=== PATIENT | male | born 1950 | race Caucasian/White ===

== ENCOUNTER 2024-10-24 08:40 | Day surgery (SDC) | payer BC ==
--- NOTE | 2024-10-14 11:07 | ELECTROCARDIOGRAPH REPORT ---
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 AMINATA Rivera Measurements Intervals [place] Rate: 61 P: 63 [place]: 156 QRS: 68 QRSD: 107 T: 34 QT: 415 QTc: 418 Interpretive Statements Sinus rhythm Electronically Signed On 10-14-2024 19:24:[address] AMINATA Rivera Please click the below link to view image of tracing.
[2024-10-14 11:15] LABS: MEAN PLATELET VOLUME 7.2 FL (7.4-10.4); PRE OP HEMATOCRIT 45.8 % (42.0-52.0); PRE OP HEMOGLOBIN 16.1 g/dL (14.0-17.9); PRE OP PLATELET COUNT 173 X10'3 (140-440); PRE OP WHITE BLOOD COUNT 4.8 10'3 (4.8-10.8); RED CELL DISTRIBUTION WIDTH 13.6 % (11.5-14.5)
[2024-10-14 11:27] LABS: CREATININE 1.02 MG/DL (0.60-1.10); PRE OP ALT 27 U/L (30-65); PRE OP ANION GAP 7 (8-16); PRE OP AST 20 U/L (10-37); PRE OP BILIRUB, TOTAL 2.1 MG/DL (0.0-1.0); PRE OP GLUCOSE 99 MG/DL (70-104); PRE OP POTASSIUM 4.4 MMOL/L (3.4-5.1); PRE OP SODIUM 140 MMOL/L (135-145); TOTAL CARBON DIOXIDE 29.2 MMOL/L (24-32); eGFR 71 ML/MIN
[~2024-10-24] VITALS: Ht 175.3 cm; Wt 79.9 kg
[2024-10-24] VITALS (14 sets, daily range): BP systolic 123–150; BP diastolic 73–85; PULSE 59–86; RESP 11–16; TEMP 99.3; O2SAT 93–100
[~2024-10-24 08:40] MED LIST: ASCO-134 PO; ATOM18CA4; ATOR10TA70 PO; COQ10; GABA-1405; LACT1CAP26 PO; MULT-1074 PO; OMEG-5 PO; TAMS-55; [UNRECOGNIZED DRUG - CODE]; ceFAZolin 2gm/dext,iso 50mL 50 ML IV ONE
[2024-10-24] MEDS: ringers solution, lacted 1,000 ML IV SCH (09:33)
[2024-10-24] MEDS ORDERED: BUPIVAcaine 2.5mg/ml inj 50ml vial (contains preservative) ONE (09:54)
[2024-10-24] MEDS ORDERED: LIDOcaine 1% 30ml preserv. free vial ONE (09:54)
--- NOTE | 2024-10-24 10:02 | HISTORY AND PHYSICAL ---
History & Physical Providers to CC CC: DESIREE HER MD ~ History of Present Illness Reason for Admit\Complaint: Recurrent left inguinal hernia, right inguinal hernia, umbilical herni History of Present Illness Interval history and physical exam Patient here today for elective repair of bilateral inguinal hernias as well as an umbilical hernia He denies any change in his past medical history since he was seen in the office (please see previous history and physical exam for all pertinent details) He is scheduled for umbilical hernia repair possible mesh, and bilateral, robotic assisted laparoscopic inguinal hernia repairs with mesh (left side recurrent) Allergies: Coded Allergies: ibuprofen (Verified Allergy, Intermediate, RASH, 10/23/24) naproxen (Verified Allergy, Intermediate, RASH, 10/23/24) Uncoded Allergies: SODIUM PENTATHOL (Allergy, Intermediate, VOMITING, 10/23/24) Home Medications Home Medications Active Reported Culturelle (Lactobacillus Rhamnosus) 10 Billion Cell Capsule 1 Cap PO DAILY Ascorbic Acid 500 Mg Tablet 1,000 Mg PO DAILY Multi-Vitamin Daily (Multivitamin) 1 Each Tablet 1 Tab PO DAILY Fish Oil 1,000 Mg Softgel (Docosahexanoic Acid/Epa) 300 Mg-1,000 Mg Capsule 2 Cap PO DAILY WITH MEALS [Cristino] [Coq10] Gabapentin 600 Mg Tablet 2 Tab DAILY Flomax* (Tamsulosin HCl) 0.4 Mg Cap.sr.24h 2 Cap DAILY Atorvastatin Calcium 10 Mg Tablet 1 Tab PO DAILY Atomoxetine HCl 18 Mg Capsule 40 Mg DAILY Exam General: 74-year-old male in no acute distress Chest: Lungs clear to auscultation bilaterally Cardiovascular: Regular rate and rhythm without murmurs Abdomen: Soft and nondistended Problems: (1) Right inguinal hernia (2) Umbilical hernia (3) Recurrent left inguinal hernia Assessment & Plan: The risks, benefits, and alternatives to an umbilical hernia repair possible mesh, and robotic assisted, laparoscopic bilateral inguinal hernia repairs with mesh (left side recurrent) were discussed with the patient and his spouse. Risks include, but are not limited to, bleeding, infection, injury to intra-abdominal structures, hernia recurrence and chronic postoperative pain. Patient verbalized understanding and wishes to proceed with surgery. We will do so today as scheduled DESIREE HER MD Oct 24, 2024 10:02
[2024-10-24] MEDS ORDERED: acetaminophen 1,000mg/100ml IV 100 ML IV PRN (10:05)
[2024-10-24] MEDS ORDERED: ondansetron/PF 4mg/2ml inj IV PRN (10:05)
[2024-10-24] MEDS ORDERED: HYDROmorphone/PF 0.2 MG/ML SYRINGE IV PRN ×2 (10:05)
[2024-10-24] MEDS ORDERED: ringers solution, lacted 1,000 ML IV SCH (10:05)
[2024-10-24] MEDS ORDERED: labetalol 20mg/4ml (5mg/ml) syringe IV PRN (10:05)
[2024-10-24] MEDS ORDERED: morphine 4 MG/ML inj SYRINge IV PRN (10:05)
[2024-10-24] MEDS ORDERED: hydrALAZINE 20mg/ml inj. IV PRN (10:05)
[2024-10-24] MEDS ORDERED: midazolam 1 mg/ML 2ml injection ONE (10:06)
[2024-10-24] MEDS ORDERED: fentaNYL /PF 50mcg/ml 5ml ampule ONE (10:06)
[2024-10-24] MEDS ORDERED: LIDOcaine 2% (20mg/ml) 5ml vial ONE (10:20)
[2024-10-24] MEDS ORDERED: glycopyrrolate 0.2mg/ml inj ONE (10:20)
[2024-10-24] MEDS ORDERED: rocuronium 10mg/ml inj IV ONE (10:20)
[2024-10-24] MEDS ORDERED: propofol inj 20 ML IV ONE (10:20)
[2024-10-24] MEDS ORDERED: ondansetron/PF 4mg/2ml inj ONE (10:20)
[2024-10-24] MEDS ORDERED: dexamethasone sod phosphate 4mg/ml inj. ONE (10:20)
[2024-10-24] MEDS: BUPIVAcaine/PF 2.5 mg/ml (0.25%) 30ml vial IJ ONE (10:56)
[2024-10-24] MEDS: LIDOcaine 1% 30ml preserv. free vial IJ ONE (10:56)
[2024-10-24] MEDS ORDERED: HYDROcodone/acetaminophen 5mg/325mg tablet PO PRN (12:15)
--- NOTE | 2024-10-24 12:16 | OPERATIVE REPORT ---
Operative Report Providers to CC: ANSHUL HER MD ~ Date of Procedure: Oct 24, 2024 Pre-Operative Diagnosis: Recurrent left inguinal hernia, right inguinal hernia, umbilical hernia Post-Operative Diagnosis SAME as PRE-Op Procedure Performed 1 cm umbilical hernia repair Robotic assisted, laparoscopic recurrent left inguinal hernia repair with mesh Robotic assisted, laparoscopic right inguinal hernia repair with mesh Surgeon: Anshul Her MD FACS Mangle Feeder None Anesthesiologist: Celia Ramírez Type of Anesthesia: General Findings: Bilateral indirect inguinal hernias; scarring at the left preperitoneal space consistent with previous open repair 1 cm umbilical hernia Wound Class I Complications None Prosthetics\Implants used: Bilateral large Dextile mesh Estimated Blood Loss: Minimal Specimen Removed: None Description of Procedure: Patient was brought to the operating room and identified by the nursing staff and the attending physician. Patient was placed supine and general anesthesia was induced. The patient's abdomen was prepped and draped in the standard sterile fashion. Preoperative antibiotics were given. Supraumbilical, midline incision was made to accommodate a 12 mm Worrell port. Worrell technique was used to gain access into the abdomen and the port was anchored to the fascia with 0 Vicryl suture. During Worrell port placement, a 1 cm umbilical hernia defect was encountered. Its contents included both herniated omentum (reduced) and some preperitoneal fat (resected with hernia sac). Abdomen was insufflated without incident. Laparoscope was inserted and the pelvis examined. Patient was placed in Trendelenburg position. Secondary, 8.5 mm robotic trochars were then placed in the right lateral left lateral upper abdomen just above the umbilical line. These were placed under laparoscopic guidance. Local anesthetic was infiltrated prior to their insertion. The da Abel robotic arm was docked to the patient. Instruments were guided intra-abdominally under laparoscopic visualization. Peritoneal rent was created starting at the left anterior superior iliac spine and carried across the anterior abdominal wall to the contralateral anterior superior iliac spine. The peritoneal flap was created and carried down to the symphysis pubis. Dissection was carried out bilaterally. There was scarring in the preperitoneal space on the left consistent with a history of previous open repair. No mesh was encountered. On the right, there was a very large indirect inguinal hernia that was completely reduced. On the left, there was a moderate- sized indirect inguinal hernia that was also completely reduced. False hernia sacs were sutured to the conjoint tendon with absorbable V lock suture to obliterate the space bilaterally. Peritoneum was dissected away from the cord structures and out laterally to accommodate 2 separate pieces of large Dextile mesh. Bilateral critical views of the myopectineal orifice were obtained. Mesh and suture was passed into the abdomen. Bilateral mesh was placed covering potential obturator, femoral, direc t, and indirect hernia spaces. Mesh was anchored at Miles's ligament, rectus muscle in the midline, and out laterally just anterior to the anterior superior iliac spine. Mesh laid without wrinkles or folds. Peritoneal rent was then reapproximated with running, absorbable 2/0 V-lock suture. Rex were retrieved. Abdomen was allowed to desufflate after instruments removed and da Abel robotic arm undocked from the patient. Umbilical port was removed as were the secondary trochars. The fascia at the umbilical port site was closed with a combination of 0 Ethibond and 0 Vicryl sutures, thus repairing the 1 cm umbilical hernia defect. Skin was closed at all sites with 4-0 Monocryl sutures in a subcuticular fashion. Sterile dressings were applied. Patient was awakened and taken to the postanesthesia care unit in stable condition. Counts repoted as correct: Yes ANSHUL HER MD Oct 24, 2024 12:16
== END 2024-10-24 14:50 | disposition home or self-care (01) ==
LOC: PAS 08:40
PROVIDERS: ATTEND Surgery
DX: K40.91 Unilateral inguinal hernia, without obstruction or gangrene, recurrent (principal); K40.90 Unilateral inguinal hernia, without obstruction or gangrene, not specified as recurrent; K42.9 Umbilical hernia without obstruction or gangrene; E78.5 Hyperlipidemia, unspecified; G47.33 Obstructive sleep apnea (adult) (pediatric); F90.9 Attention-deficit hyperactivity disorder, unspecified type; M19.90 Unspecified osteoarthritis, unspecified site; Z79.1 Long term (current) use of non-steroidal anti-inflammatories (NSAID); Z79.899 Other long term (current) drug therapy; Z96.612 Presence of left artificial shoulder joint; Z88.8 Allergy status to other drugs, medicaments and biological substances
CPT/HCPCS: 36415; 80053; 82948; 85025; 93005; A4215; A4314; A4618; C1758; C1781; J1100; J2003; J2250; J2405; J2704; J2710; J3010; J3490; J7120

== ENCOUNTER 2024-10-26 15:40 | Emergency (ER) | payer BC ==
[~2024-10-26] VITALS: Ht 175.3 cm; Wt 88.7 kg
[~2024-10-26 15:40] MED LIST changes: -ceFAZolin 2gm/dext,iso 50mL 50 ML IV ONE
[2024-10-26 15:57] VITALS: BP 139/98; PULSE 78; RESP 16; O2SAT 98
--- NOTE | 2024-10-26 16:03 | Physician Documentation ---
History of Present Illness ~ Chief Complaint: Catheter Problem Stated Complaint: POST OP COMPLICATIONS Time Seen by MD: 16:20 Primary Medical Doctor: Heather MAYFIELD HPI Patient presents with his . Had hernia repair on with Dr. Alicia. There was a [place] catheter left in place and they were given instructions to remove the catheter today. They noted pink colored urine today and wanted it evaluated prior to removal. No pain. No fevers or chills. Overall, feels well. Medication Reconciliation Allergies: Coded Allergies: ibuprofen (Verified Allergy, Intermediate, RASH, 10/23/24) naproxen (Verified Allergy, Intermediate, RASH, 10/23/24) Uncoded Allergies: SODIUM PENTATHOL (Allergy, Intermediate, VOMITING, 10/23/24) Scheduled Ascorbic Acid (Ascorbic Acid), 1,000 MG PO DAILY, (Reported) Atomoxetine HCl (Atomoxetine HCl), 40 MG DAILY, (Reported) Atorvastatin Calcium (Atorvastatin Calcium), 1 TAB PO DAILY, (Reported) Docosahexanoic Acid/Epa (Fish Oil 1,000 Mg Softgel), 2 CAP PO DAILY, (Reported) Gabapentin (Gabapentin), 2 TAB DAILY, (Reported) Lactobacillus Rhamnosus (Culturelle), 1 CAP PO DAILY, (Reported) Multivitamin (Multi-Vitamin Daily), 1 TAB PO DAILY, (Reported) Tamsulosin Hcl* (Flomax*), 2 CAP DAILY, (Reported) Miscellaneous Medications [Coq10], (Reported) [Cristino], (Reported) Discontinued Medications [Multivitamin], (Reported) Discontinued Reason: Prescription changed [Probiotic], (Reported) Discontinued Reason: Prescription changed [Ultimate [place]], (Reported) Discontinued Reason: Prescription changed [Vit C], (Reported) Discontinued Reason: Prescription changed Past Medical History Past Medical History: No Pertinent History Past Surgical History: orthopedic surgeries, other Alcohol Use: Occasionally Drug Use: none Review of Systems ROS Review of systems negative except documented in HPI. Physical Exam Vital Signs: Temperature: 98.0, Source: Temporal, Heart Rate: 78, Respiratory Rate: 16, BP: 139/98, Pulse Oximetry: 98, Weight: 88.700 Oxygen Flow Rate: 0 Pulse Oximetry Reflects: adequate oxygenation Physical Exam Medical screening exam: Patient is awake, alert, oriented. No apparent distress. His [place] catheter was evaluated. The urine has mild pink/Le color General: Awake, alert, oriented. No apparent distress Respiratory: Lungs are clear to auscultation bilaterally. No respiratory distress. Chest: Normal shape and size. No accessory muscle use. Cardiovascular: Regular rate and rhythm. S1-S2. No murmur, gallop, rub. Gastrointestinal: Abdomen is soft. Mildly distended. Nontender to palpation. Bowel sounds present. Three surgical incisions with Band-Aids. Band-Aids were removed. Steri-Strips are intact. No erythema, swelling. : Urine in the catheter is pale yellow. There is no pink color except for in the back. Urethral meatus is asymptomatic. Neurologic: Alert and oriented x4. Nonfocal Psychiatric: Normal mood and affect. Skin: Normal color. Warm and dry. Progress Results/Orders Results/Orders Vital Signs 10/26/24 10/26/24 15:57 16:44 Temp 98.0 98.0 Pulse 78 Resp 16 B/P (MAP) 139/98 Pulse Ox 98 O2 Flow Rate 0 Medical Decision Making Findings Patient presents with concerns for slight pink discoloration to his urine. He has a [place] catheter in place. Had instructions to remove the [place] catheter after surgery today. His urine did have a pink discoloration in the bag however in the tubing the urine is pale yellow and normal. His [place] catheter was therefore removed for him. Aftercare instructions were reviewed. He was encouraged to return if he is unable to void. At this time, there is low clinical suspicion for bladder rupture, urinary tract infections or other acute urologic emergencies. Departure Time of Disposition: 16:31 Disposition: 01 HOME / SELF CARE / HOMELESS Impression: Primary Impression: BPH (benign prostatic hyperplasia) Qualified Codes: N40.0 - Benign prostatic hyperplasia without lower urinary tract symptoms Condition: Stable Discharge Instructions: Acute Urinary Retention, Male Referrals: NO PRIMARY CARE PROVIDER (PCP) Comments As per your request the [place] catheter was removed as it was instructed by your surgeon. The slightly pink discoloration is likely secondary to some minor pulling/trauma from the [place] catheter. The insertion site looked normal. As we discussed, if you have any difficulty urinating after the [place] catheter was removed he will need to return. It will take several hours for your bladder to fill back up with urine. If you do not urinate by our 12 you may need to return to the emergency department. If you feel full of urine before that time and you can not void please return to the emergency department. Return for any new or worsening symptoms. Education Educated: Patient Educated regarding: diagnosis, treatment, need for follow up Signature Scribe Signature: No scribe Attestation: The note accurately reflects work and decisions made by me.Teresa Lerma NP 10/28/24 16:18 This note was created with the assistance of voice recognition software whereby errors in grammar, syntax, and/or spelling may have occurred despite active proofreading efforts by the author. Please do not hesitate to contact the provider for clarification or for questions regarding the content of this document. TERESA RODRÍGUEZ NP Oct 26, 2024 16:02
[2024-10-26 16:44] VITALS: TEMP 98
== END 2024-10-26 16:46 | disposition home or self-care (01) ==
LOC: ER 15:40
DX: N40.0 Benign prostatic hyperplasia without lower urinary tract symptoms (principal); Z88.6 Allergy status to analgesic agent; Z88.8 Allergy status to other drugs, medicaments and biological substances
CPT/HCPCS: 99281